=== PATIENT | male | born 1935 | race Caucasian/White ===

== ENCOUNTER 2017-07-26 17:18 | Emergency (ER) | payer MEDICARE, OTHER ==
[~2017-07-26] VITALS: Ht 182.9 cm; Wt 74.8 kg
[~2017-07-26 17:18] MED LIST: ACYC400 PO; ACYC800 PO; ASPI81EC PO; AZIT250; CHOL10002; ENOX30I SC; GUAI120S1; HYDACE5 PO; HYDHOMSY PO; METF500 PO; METHIMAZOLE PO; METO50 PO; Monodox100 MG PO; OMEP20ER PO; PRED1 PO; PRED10 PO; SIMV40 PO; WARF1; WARF5 PO; WARF7.5 PO; ZOLP10 PO
[2017-07-26 18:04] LABS: BASOPHILS ABSOLUTE AUTO 0.07 K/mm3 (0.00-0.23); BASOPHILS PERCENT AUTO 1 % (0-2); EOSINOPHILS ABSOLUTE AUTO 0.09 K/mm3 (0.00-0.68); EOSINOPHILS PERCENT AUTO 1 % (0-6); Hemoglobin 8.9 g/dL (13.5-17.5); IMMATURE GRAN ABSOLUTE AUTO 0.02 K/mm3 (0.00-0.10); IMMATURE GRAN PERCENT AUTO 0 % (0-1); LYMPHOCYTES ABSOLUTE AUTO 1.67 K/mm3 (0.84-5.20); LYMPHOCYTES PERCENT AUTO 21 % (21-46); MONOCYTES ABSOLUTE AUTO 0.67 K/mm3 (0.16-1.47); MONOCYTES PERCENT AUTO 9 % (4-13); Mean Corpuscular HGB 20.6 pg (26.0-34.0); Mean Corpuscular HGB Conc 28.7 g/dL (31.5-36.5); Mean Corpuscular Volume 72 fL (80-100); Mean Platelet Volume 8.8 fL (9.1-12.4); NEUTROPHILS PERCENT AUTO 68 % (41-73); Platelet Count 201 K/mm3 (150-400); RDW Coefficient Variation 21.3 % (11.7-14.2); RDW Standard Deviation 54.2 fL (35.1-46.3); Red Blood Cell Count 4.32 M/mm3 (4.30-5.90); White Blood Cell Count 7.82 K/mm3 (4.00-11.30)
[2017-07-26 18:20] LABS: Alanine Aminotransfer (ALT/SGP 23 U/L (12-78); Albumin, Blood 3.4 g/dL (3.4-5.0); Albumin/Globulin Ratio 0.8 (0.8-1.8); Alk Phos 85 U/L (50-136); Anion Gap 9 mmol/L (6-16); Aspartate Aminotrans (AST/SGOT 20 U/L (12-37); Bilirubin, Total 0.5 mg/dL (0.1-1.0); Blood Urea Nitrogen 17 mg/dL (8-24); CO2, Blood 25 mmol/L (21-32); Chloride, Blood 107 mmol/L (98-108); Globulin, Blood 4.2 g/dL (2.2-4.0); Glomerular Filtration Rate >60 (60-); Glucose, Blood 89 mg/dL (70-99); Magnesium, Blood 1.8 mg/dL (1.6-2.4); Potassium, Blood 4.5 mmol/L (3.5-5.5); Sodium, Blood 141 mmol/L (136-145); Total Protein, Blood 7.6 g/dL (6.4-8.2); Troponin I <0.015 ng/mL (0.000-0.040)
== END 2017-07-26 19:53 | disposition home or self-care (01) ==
LOC: ER 17:18
PROVIDERS: Emergency Medicine
DX: I48.91 Unspecified atrial fibrillation (principal); D64.9 Anemia, unspecified; I10 Essential (primary) hypertension; I25.10 Atherosclerotic heart disease of native coronary artery without angina pectoris; Z88.5 Allergy status to narcotic agent; Z88.8 Allergy status to other drugs, medicaments and biological substances; Z79.899 Other long term (current) drug therapy; Z79.84 Long term (current) use of oral hypoglycemic drugs
CPT/HCPCS: 36415; 71046; 80053; 82272; 83735; 84443; 84484; 85025; 93005; 93010; 99284

== ENCOUNTER 2018-05-05 16:47 | Observation (INO) | payer MEDICARE, OTHER ==
[~2018-05-05] VITALS: Ht 182.9 cm; Wt 72.6 kg
[~2018-05-05 16:47] MED LIST changes: +ATOR20 PO; -CHOL10002; +CHOL10002 PO; +Lovenox30 MG/0.3 INJ; -METF500 PO; +METF500C PO; +METO25 PO; -METO50 PO; +Miralax17 GM PO; +OMEPRAZOLE MAGN20 MG PO
[2018-05-05 17:07] LABS: BASOPHILS ABSOLUTE AUTO 0.09 K/mm3 (0.00-0.23); BASOPHILS PERCENT AUTO 1 % (0-2); EOSINOPHILS ABSOLUTE AUTO 0.12 K/mm3 (0.00-0.68); EOSINOPHILS PERCENT AUTO 1 % (0-6); Hemoglobin 10.2 g/dL (13.5-17.5); IMMATURE GRAN ABSOLUTE AUTO 0.14 K/mm3 (0.00-0.10); IMMATURE GRAN PERCENT AUTO 2 % (0-1); LYMPHOCYTES ABSOLUTE AUTO 2.82 K/mm3 (0.84-5.20); LYMPHOCYTES PERCENT AUTO 31 % (21-46); MONOCYTES ABSOLUTE AUTO 0.75 K/mm3 (0.16-1.47); MONOCYTES PERCENT AUTO 8 % (4-13); Mean Corpuscular HGB 23.6 pg (26.0-34.0); Mean Corpuscular HGB Conc 29.1 g/dL (31.5-36.5); Mean Corpuscular Volume 81 fL (80-100); Mean Platelet Volume 8.8 fL (9.1-12.4); NEUTROPHILS ABSOLUTE AUTO 5.17 K/mm3 (1.96-9.15); NEUTROPHILS PERCENT AUTO 57 % (41-73); Platelet Count 245 K/mm3 (150-400); RDW Coefficient Variation 20.8 % (11.7-14.2); RDW Standard Deviation 60.8 fL (35.1-46.3); Red Blood Cell Count 4.32 M/mm3 (4.30-5.90); White Blood Cell Count 9.09 K/mm3 (4.00-11.30)
[2018-05-05 17:22] LABS: International Normalized Ratio 1.09; Prothrombin Time Results 11.2 Sec (9.7-11.5)
[2018-05-05 17:27] LABS: Alanine Aminotransfer (ALT/SGP 27 U/L (12-78); Albumin, Blood 3.4 g/dL (3.4-5.0); Albumin/Globulin Ratio 0.8 (0.8-1.8); Alk Phos 86 U/L (50-136); Anion Gap 9 mmol/L (6-16); Aspartate Aminotrans (AST/SGOT 25 U/L (12-37); Bilirubin, Total 0.7 mg/dL (0.1-1.0); Blood Urea Nitrogen 9 mg/dL (8-24); Bun/Creatinine Ratio 8.3 (12.0-20.0); CO2, Blood 24 mmol/L (21-32); Calcium, Blood 8.9 mg/dL (8.5-10.1); Chloride, Blood 106 mmol/L (98-108); Creatinine, Blood 1.09 mg/dL (0.60-1.20); Ethanol (Alcohol), Blood, Med 161 mg/dL; Globulin, Blood 4.4 g/dL (2.2-4.0); Glomerular Filtration Rate >60 (60-); Glucose, Blood 92 mg/dL (70-99); Potassium, Blood 3.8 mmol/L (3.5-5.5); Sodium, Blood 139 mmol/L (136-145); Total Protein, Blood 7.8 g/dL (6.4-8.2)
[2018-05-05] MEDS ORDERED: WARF5 PO (19:43)
--- NOTE | 2018-05-06 04:34 | NUR ---
SHIFT SUMMARY: PT IS ALERT AND ORIENTED WITH SOME MINOR CONFUSION AND FORGETFULLNESS. PT IS CALM AND COOPERATIVE WITH CARE. PT CALLS APPROPRIATELY. PT IS NORMALY INDEPENDENT, CURRENTLY TOO WEAK AND PAINFUL TO AMBULATE. PT REPORTS MUSCULOSKELETAL PAIN IN HIS L. CHEST, CALLED DR. MARIN AND RECEIVED AN ORDER FOR PRN PERCOCET, ALLERGY LISTED FOR ACETAMINOPHEN FROM HYDROCODONE, NO ALLERGIC REACTION. PT DENIES NAUSEA, VOMITING, AND SOB. PT SLEPT VERY LITTLE OVERNIGHT. WILL REPORT TO DAY NURSE.
--- NOTE | 2018-05-06 15:16 | NUR ---
obtained permission from pt to provide care under RN supervision 05/07/18 from [id number]. Pt granted access to medical files as well.
--- NOTE | 2018-05-06 15:47 | NUR ---
PT IS A/OX3, PLEASANT AND COOPERATIVE, THE PT IS UP WITH 1 PERSON ASSIST, THE PT CAN BE UNSTEADY ON HIS FEET AT TIMES, THE PT APPEARS TO BE BREATHING EASILY ON RA, THE PT REPORTED CHEST PAIN TODAY LIKELY RELATED TO HIS FALL. THE PT REFUSED TO WORK OUTSIDE OF THE BED WITH THE PHYSICAL THERAPIST TODAY BECAUSE OF HIS PAIN, THE PTS DISCHARGE WAS HELD BY DR. CAVAZOS PENDING FURTHER REVIEW, PT HAS A CONTUSION ON THE BACK OF HIS HEAD FROM HIS FALL YESTERDAY, PT WAS MEDICATED FOR PAIN X1 SO FAR TODAY, BED IN THE LOW POSITION, CALL LIGHT IN REACH
--- NOTE | 2018-05-07 04:04 | NUR ---
SHIFT SUMMARY: PT IS ALERT AND ORIENTED WITH MINOR, INTERMITTENT CONFUSION. PT IS CALM AND COOPERATIVE WITH CARE. PT CALLS APPROPRIATELY. PT IS A ONE PERSON ASSIST WITH FWW TO THE BATHROOM. PT REPORTS PAIN, ESPECIALLY WITH MOVEMENT, NO MEDS GIVEN. PT DENIES NAUSEA, VOMITING, AND SOB. POSSIBLE DC TODAY. NO ACUTE CHANGES OR COMPLICATIONS. BED IN LOW POSITION, CALL LIGHT WITHIN REACH.
[2018-05-07 06:39] LABS: International Normalized Ratio 1.1; Prothrombin Time Results 11.3 Sec (9.7-11.5)
--- NOTE | 2018-05-07 18:26 | NUR ---
MILD CONFUSION/FORGETFULNESS NOTED FIRST THIS THIS MORNING, CLEARED PT WAS UP AND ABOUT TODAY. MEDICATED FOR NECK AND R SHOULDER PAIN THIS AFTERNOON, NO ACUTE CHANGES NOTED THIS SHIFT. WILL CONTINUE TO MONITOR AND REPORT TO ONCOMING RN.
[2018-05-08 05:53] LABS: International Normalized Ratio 1.11; Prothrombin Time Results 11.4 Sec (9.7-11.5)
--- NOTE | 2018-05-08 05:57 | NUR ---
INVESTIGATIVE ANALYST SUMMARY NO ACUTE CHANGES. PT AAOX4. A LITTLE IRRITABLE WITH CARE AT START OF SHIFT BUT OVERALL COOPERATIVE WITH CARE. PT DENIES DIZZINESS. TREATED FOR CHRONIC BACK PAIN X1 PER EMAR. GEOLOGICAL SCIENCE TEACHER REPORTS CONTROLLED AFIB IN 60-70'S THROUGH THE NIGHT. VSS, WILL CONTINUE TO MONITOR.
[2018-05-08] MEDS ORDERED: ENOX80I SC (14:49)
== END 2018-05-08 15:03 | disposition home health service (06) ==
LOC: ER 16:47 → MEDS 16:48 → ENPENDDIS 05-08 14:00 → MEDS 05-08 15:03
PROVIDERS: Internal Medicine; Physician Assistant; ADMIT Internal Medicine
DX: R55 Syncope and collapse (principal); R07.9 Chest pain, unspecified; I48.2 Chronic atrial fibrillation; E11.9 Type 2 diabetes mellitus without complications; I25.10 Atherosclerotic heart disease of native coronary artery without angina pectoris; I10 Essential (primary) hypertension; E78.00 Pure hypercholesterolemia, unspecified; H05.20 Unspecified exophthalmos; R93.89 Abnormal findings on diagnostic imaging of other specified body structures; Z88.5 Allergy status to narcotic agent; Z88.8 Allergy status to other drugs, medicaments and biological substances; Z79.01 Long term (current) use of anticoagulants; Z79.899 Other long term (current) drug therapy; Z95.2 Presence of prosthetic heart valve; Z87.891 Personal history of nicotine dependence; Z23 Encounter for immunization
CPT/HCPCS: 36415; 70450; 71046; 72125; 80053; 82947; 83036; 83690; 84439; 84443; 84484; 85025; 85610; 85730; 90686; 93005; 93010; 93306; 96372; 97110; 97162; 99285-25; G0008; G0378; G0480; J1650

== ENCOUNTER 2019-12-23 08:22 | Emergency (ER) | payer MEDICARE, OTHER ==
[~2019-12-23] VITALS: Ht 182.9 cm; Wt 67.1 kg
[~2019-12-23 08:22] MED LIST changes: -ATOR20 PO; +ENOX80I SC; -METF500C PO
[2019-12-23 09:08] LABS: BASOPHILS ABSOLUTE AUTO 0.04 K/mm3 (0.00-0.23); BASOPHILS PERCENT AUTO 0 % (0-2); EOSINOPHILS ABSOLUTE AUTO 0.01 K/mm3 (0.00-0.68); EOSINOPHILS PERCENT AUTO 0 % (0-6); Hematocrit 41.8 % (37.0-53.0); Hemoglobin 13.6 g/dL (13.5-17.5); IMMATURE GRAN ABSOLUTE AUTO 0.04 K/mm3 (0.00-0.10); IMMATURE GRAN PERCENT AUTO 0 % (0-1); LYMPHOCYTES ABSOLUTE AUTO 0.93 K/mm3 (0.84-5.20); LYMPHOCYTES PERCENT AUTO 9 % (21-46); MONOCYTES ABSOLUTE AUTO 0.67 K/mm3 (0.16-1.47); MONOCYTES PERCENT AUTO 7 % (4-13); Mean Corpuscular HGB 27.2 pg (26.0-34.0); Mean Corpuscular HGB Conc 32.5 g/dL (31.5-36.5); Mean Corpuscular Volume 84 fL (80-100); Mean Platelet Volume 9.6 fL (9.1-12.4); NEUTROPHILS ABSOLUTE AUTO 8.48 K/mm3 (1.96-9.15); NEUTROPHILS PERCENT AUTO 83 % (41-73); Platelet Count 240 K/mm3 (150-400); RDW Coefficient Variation 15.9 % (11.7-14.2); White Blood Cell Count 10.17 K/mm3 (4.00-11.30)
[2019-12-23 09:24] LABS: International Normalized Ratio 1.15; Prothrombin Time Results 12.2 Sec (9.7-11.5)
[2019-12-23 09:35] LABS: Alanine Aminotransfer (ALT/SGP 19 U/L (12-78); Albumin, Blood 3.6 g/dL (3.4-5.0); Albumin/Globulin Ratio 0.8 (0.8-1.8); Alk Phos 71 U/L (50-136); Anion Gap 12 mmol/L (6-16); Aspartate Aminotrans (AST/SGOT 32 U/L (12-37); Bilirubin, Total 1.6 mg/dL (0.1-1.0); Blood Urea Nitrogen 27 mg/dL (8-24); Bun/Creatinine Ratio 27.4 (12.0-20.0); CO2, Blood 20 mmol/L (21-32); CPK Creatine Kinase 337 U/L (39-308); Calcium, Blood 9.9 mg/dL (8.5-10.1); Chloride, Blood 105 mmol/L (98-108); Creatinine, Blood 0.99 mg/dL (0.60-1.20); Ethanol (Alcohol), Blood, Med <3 mg/dL; Globulin, Blood 4.7 g/dL (2.2-4.0); Glomerular Filtration Rate >60 (60-); Glucose, Blood 105 mg/dL (70-99); Magnesium, Blood 2.1 mg/dL (1.6-2.4); Phosphorus, Blood 3.3 mg/dL (2.5-4.9); Potassium, Blood 4.2 mmol/L (3.5-5.5); Sodium, Blood 137 mmol/L (136-145); Total Protein, Blood 8.3 g/dL (6.4-8.2); Troponin I 0.015 ng/mL (0.000-0.040)
[2019-12-23 09:49] LABS: Creatine Kinase MB Index 1.8 (0.0-4.0)
[2019-12-23 10:11] LABS: Source, Urine Clean Catch
[2019-12-23 10:13] LABS: Blood, Urine 2+ (Neg); Glucose Qualitative, Urine Neg (Neg); Ketones, Urine 3+ (Neg); Leukocyte Esterase, Urine Neg (Neg); Nitrite, Urine Neg (Neg); Protein, Urine 2+ (Neg); Specific Gravity, Urine 1.025 (1.003-1.022); Urobilinogen, Urine 1+ (Normal)
[2019-12-23 10:28] LABS: Bilirubin, Urine 1+ (Neg)
[2019-12-23 10:31] LABS: Appearance, Urine Clear (Clear); Bacteria Rare /hpf; Color, Urine Yellow (P-Yellow); Squamous Epithelial Cells Rare /hpf (Few); White Blood Cells, Urine 0-2 /hpf (0-5)
[2019-12-23] MEDS ORDERED: WARF5 PO (12:41)
[2019-12-23] MEDS ORDERED: ATOR20 PO (12:41)
[2019-12-23] MEDS ORDERED: METF500 PO (12:41)
== END 2019-12-23 16:05 ==
LOC: ER 08:22
PROVIDERS: Physician Assistant
DX: E86.0 Dehydration (principal); I48.91 Unspecified atrial fibrillation; I10 Essential (primary) hypertension; I25.810 Atherosclerosis of coronary artery bypass graft(s) without angina pectoris; E78.00 Pure hypercholesterolemia, unspecified; E11.39 Type 2 diabetes mellitus with other diabetic ophthalmic complication; H42 Glaucoma in diseases classified elsewhere; Z20.828 Contact with and (suspected) exposure to other viral communicable diseases; Z88.6 Allergy status to analgesic agent; Z88.5 Allergy status to narcotic agent; Z79.84 Long term (current) use of oral hypoglycemic drugs; Z79.899 Other long term (current) drug therapy; Z79.01 Long term (current) use of anticoagulants; Z95.1 Presence of aortocoronary bypass graft; Z95.5 Presence of coronary angioplasty implant and graft; Z87.891 Personal history of nicotine dependence
CPT/HCPCS: 36415; 70450; 80053; 81001; 82550; 82553; 83735; 84100; 84484; 85025; 85610; 93005; 93010; 97110; 97162; 99285-25; G0480; J7030; U0002

== ENCOUNTER 2019-12-25 03:16 | Inpatient (IN) | payer MEDICARE, OTHER ==
[~2019-12-25] VITALS: Ht 182.9 cm; Wt 64.2 kg
[~2019-12-25 03:16] MED LIST changes: +ATOR20 PO; +METF500 PO
[2019-12-25] MEDS ORDERED: METO25ER PO (04:01)
[2019-12-25 04:09] LABS: BASOPHILS ABSOLUTE AUTO 0.05 K/mm3 (0.00-0.23); BASOPHILS PERCENT AUTO 0 % (0-2); EOSINOPHILS PERCENT AUTO 0 % (0-6); Hemoglobin 12.4 g/dL (13.5-17.5); IMMATURE GRAN ABSOLUTE AUTO 0.08 K/mm3 (0.00-0.10); IMMATURE GRAN PERCENT AUTO 1 % (0-1); LYMPHOCYTES PERCENT AUTO 5 % (21-46); MONOCYTES ABSOLUTE AUTO 0.87 K/mm3 (0.16-1.47); MONOCYTES PERCENT AUTO 6 % (4-13); Mean Corpuscular HGB 27.1 pg (26.0-34.0); Mean Corpuscular HGB Conc 31.8 g/dL (31.5-36.5); Mean Corpuscular Volume 85 fL (80-100); Mean Platelet Volume 10.6 fL (9.1-12.4); NEUTROPHILS ABSOLUTE AUTO 12.26 K/mm3 (1.96-9.15); NEUTROPHILS PERCENT AUTO 88 % (41-73); Platelet Count 194 K/mm3 (150-400); RDW Coefficient Variation 16.7 % (11.7-14.2); Red Blood Cell Count 4.58 M/mm3 (4.30-5.90); White Blood Cell Count 13.96 K/mm3 (4.00-11.30)
[2019-12-25 04:17] LABS: PCO2 Arterial 31.1 mmHg (35-45); PO2 Arterial 63.9 mmHg (80-100); pH Blood Arterial 7.47 (7.35-7.45)
[2019-12-25 04:30] LABS: Alanine Aminotransfer (ALT/SGP 18 U/L (12-78); Albumin/Globulin Ratio 0.6 (0.8-1.8); Alk Phos 63 U/L (50-136); Anion Gap 6 mmol/L (6-16); Aspartate Aminotrans (AST/SGOT 40 U/L (12-37); Bilirubin, Total 1.7 mg/dL (0.1-1.0); Blood Urea Nitrogen 22 mg/dL (8-24); Bun/Creatinine Ratio 22.1 (12.0-20.0); CO2, Blood 23 mmol/L (21-32); Calcium, Blood 9.6 mg/dL (8.5-10.1); Chloride, Blood 106 mmol/L (98-108); Globulin, Blood 4.7 g/dL (2.2-4.0); Glomerular Filtration Rate >60 (60-); Glucose, Blood 110 mg/dL (70-99); Potassium, Blood 5.6 mmol/L (3.5-5.5); Sodium, Blood 135 mmol/L (136-145); Total Protein, Blood 7.7 g/dL (6.4-8.2); Troponin I 0.026 ng/mL (0.000-0.040)
[2019-12-25 05:16] LABS: International Normalized Ratio 1.21; Prothrombin Time Results 12.8 Sec (9.7-11.5)
[2019-12-25 07:13] LABS: BASOPHILS ABSOLUTE AUTO 0.05 K/mm3 (0.00-0.23); BASOPHILS PERCENT AUTO 0 % (0-2); EOSINOPHILS PERCENT AUTO 0 % (0-6); Hematocrit 33.8 % (37.0-53.0); Hemoglobin 10.9 g/dL (13.5-17.5); IMMATURE GRAN ABSOLUTE AUTO 0.05 K/mm3 (0.00-0.10); IMMATURE GRAN PERCENT AUTO 0 % (0-1); LYMPHOCYTES PERCENT AUTO 5 % (21-46); MONOCYTES ABSOLUTE AUTO 0.86 K/mm3 (0.16-1.47); MONOCYTES PERCENT AUTO 7 % (4-13); Mean Corpuscular HGB 27.3 pg (26.0-34.0); Mean Corpuscular HGB Conc 32.2 g/dL (31.5-36.5); Mean Corpuscular Volume 85 fL (80-100); Mean Platelet Volume 9.6 fL (9.1-12.4); NEUTROPHILS ABSOLUTE AUTO 10.29 K/mm3 (1.96-9.15); NEUTROPHILS PERCENT AUTO 87 % (41-73); Platelet Count 186 K/mm3 (150-400); RDW Coefficient Variation 16.3 % (11.7-14.2); RDW Standard Deviation 49.5 fL (35.1-46.3); Red Blood Cell Count 3.99 M/mm3 (4.30-5.90); White Blood Cell Count 11.85 K/mm3 (4.00-11.30)
[2019-12-25 07:33] LABS: Alanine Aminotransfer (ALT/SGP 14 U/L (12-78); Albumin, Blood 2.6 g/dL (3.4-5.0); Albumin/Globulin Ratio 0.6 (0.8-1.8); Alk Phos 56 U/L (50-136); Anion Gap 7 mmol/L (6-16); Aspartate Aminotrans (AST/SGOT 13 U/L (12-37); Bilirubin, Total 1.4 mg/dL (0.1-1.0); Blood Urea Nitrogen 22 mg/dL (8-24); Bun/Creatinine Ratio 23.2 (12.0-20.0); CO2, Blood 23 mmol/L (21-32); Calcium, Blood 8.8 mg/dL (8.5-10.1); Chloride, Blood 107 mmol/L (98-108); Creatinine, Blood 0.95 mg/dL (0.60-1.20); Glomerular Filtration Rate >60 (60-); Glucose, Blood 112 mg/dL (70-99); Potassium, Blood 4.1 mmol/L (3.5-5.5); Sodium, Blood 137 mmol/L (136-145); Total Protein, Blood 6.6 g/dL (6.4-8.2)
[2019-12-25 13:09] LABS: Adenovirus Not Detected (NOT DETECT); Coronavirus 229E Not Detected (NOT DETECT)
[2019-12-25 13:10] LABS: Bordetella pertussis Not Detected (NOT DETECT); Chlamydophila pneumoniae Not Detected (NOT DETECT); Coronavirus HKU1 Not Detected (NOT DETECT); Coronavirus NL63 Not Detected (NOT DETECT); Coronavirus OC43 Not Detected (NOT DETECT); Human Metapneumovirus Not Detected (NOT DETECT); Human Rhinovirus/Enterovirus Not Detected (NOT DETECT); Influenza A/2009-H1 Not Detected (NOT DETECT); Influenza A/H1 Not Detected (NOT DETECT); Influenza A/H3 Not Detected (NOT DETECT); Influenza B Not Detected (NOT DETECT); Mycoplasma pneumoniae Not Detected (NOT DETECT); Parainfluenza Virus 1 Not Detected (NOT DETECT); Parainfluenza Virus 2 Not Detected (NOT DETECT); Parainfluenza Virus 3 Not Detected (NOT DETECT); Parainfluenza Virus 4 Not Detected (NOT DETECT); Respiratory Syncytial Virus Not Detected (NOT DETECT); SARS-Cov-2 (COVID-19), BioFire Not Detected (NOT DETECT)
--- NOTE | 2019-12-25 19:22 | NUR ---
SHIFT SUMMARY PT WAS ADMITTED TODAY FROM ER. PT IS ALERT AND ORIENTED TO PERSON, PLACE, KNOWS IT 2020, WAS CONFUSED ABOUT THE MONTH. PT REPORTS TO RN THAT HE WAS "KIDNAPPED" AND ALL HIS PROBLEMS BEGAN WHEN THAT HAPPEN. PT WAS UNABLE TO ELABORATE MORE ABOUT A TIMELINE OF EVENTS. PT WAS NOTED TO HAVE BRUISING TO RIGHT SIDE AND SCATTERED THROUGH OUT BODY. LUNG SOUNDS ARE COARSE T/O AND PT IS ON 2L OF O2. VITALS HAVE REMAINED STABLE. SPEECH THERAPY SAW PT AND RECOMMENDS NPO. INFORMED DR AND ORDERS WERE CHANGED TO IV MEDS.
--- NOTE | 2019-12-26 02:36 | NUR ---
UPDATE PATIENT REPORTED 5/10 CHEST PAIN THAT OCCURED WHEN HE MOVED OR COUGHED. NO CHANGES NOTED TO TELE PER ATM MECHANIC. DR NOTIFIED. ORDER FOR PAIN MEDICATION RECEIVED.
[2019-12-26 04:10] LABS: BASOPHILS ABSOLUTE AUTO 0.05 K/mm3 (0.00-0.23); BASOPHILS PERCENT AUTO 1 % (0-2); EOSINOPHILS ABSOLUTE AUTO 0.03 K/mm3 (0.00-0.68); EOSINOPHILS PERCENT AUTO 0 % (0-6); Hemoglobin 10.6 g/dL (13.5-17.5); IMMATURE GRAN ABSOLUTE AUTO 0.05 K/mm3 (0.00-0.10); IMMATURE GRAN PERCENT AUTO 1 % (0-1); LYMPHOCYTES ABSOLUTE AUTO 0.69 K/mm3 (0.84-5.20); LYMPHOCYTES PERCENT AUTO 7 % (21-46); MONOCYTES PERCENT AUTO 6 % (4-13); Mean Corpuscular HGB 27.5 pg (26.0-34.0); Mean Corpuscular HGB Conc 32.1 g/dL (31.5-36.5); Mean Corpuscular Volume 86 fL (80-100); Mean Platelet Volume 10.1 fL (9.1-12.4); NEUTROPHILS ABSOLUTE AUTO 8.69 K/mm3 (1.96-9.15); NEUTROPHILS PERCENT AUTO 86 % (41-73); Platelet Count 190 K/mm3 (150-400); RDW Coefficient Variation 16.4 % (11.7-14.2); RDW Standard Deviation 50.2 fL (35.1-46.3); Red Blood Cell Count 3.85 M/mm3 (4.30-5.90); White Blood Cell Count 10.11 K/mm3 (4.00-11.30)
[2019-12-26 04:23] LABS: Albumin, Blood 2.5 g/dL (3.4-5.0); Anion Gap 6 mmol/L (6-16); Blood Urea Nitrogen 19 mg/dL (8-24); Bun/Creatinine Ratio 21.6 (12.0-20.0); CO2, Blood 24 mmol/L (21-32); Calcium, Blood 8.7 mg/dL (8.5-10.1); Chloride, Blood 111 mmol/L (98-108); Creatinine, Blood 0.88 mg/dL (0.60-1.20); Glomerular Filtration Rate >60 (60-); Glucose, Blood 82 mg/dL (70-99); Phosphorus, Blood 2.5 mg/dL (2.5-4.9); Potassium, Blood 3.9 mmol/L (3.5-5.5); Sodium, Blood 141 mmol/L (136-145)
--- NOTE | 2019-12-26 07:33 | NUR ---
SHIFT SUMMARY PATIENT PLEASENT AND COOPERATIVE THROUGHOUT THE NIGHT. HOWEVER, PATIENT APPEARS TO BE CONFUSED AND FORGETFUL LAST NIGHT. PATIENT REQUESTED HIS PHONE TO BE TURNED OFF AND THEN SHORTLY AFTER HE WAS TRYING TO FIGURE OUT WHY HIS PHONE WAS NOT "WORKING." PATIENT TURNED Q2H. PATIENT MEDICATED FOR PAIN PER EMAR. IV FLUIDS FINISHED PER ORDERS. BED ALARM ON FOR SAFETY. REPORT GIVEN TO ONCOMING RN.
--- NOTE | 2019-12-26 17:49 | NUR ---
SHIFT SUMMARY PT IS ALERT TO PERSON AND PLACE, FORGETFUL AT TIMES. PT WAS WEANED TO ROOM AIR TODAY AND HAS MAINTAINED A SPO2 >92%. LUNGS REMAIN COURSE THROUGHOUT AND PT STILL HAS A MOIST NONPRODUCTIVE COUGH. SPEECH SAW PT AGAIN TODAY, BUT WAS UNABLE TO CHANGE NPO STATUS. PLAN IS POSSIBLE MODIFIED BARIUM STUDY TOMORROW. PHYSICAL THERAPY AND OCCUPATIONAL THERAPY WORKED WITH PT AND PT TOLERATED SITTING UP IN CHAIR FOR A FEW HOURS TODAY. PT DOES NEED REMINDING/ASSITANCE IN REPOSITIONING TO DECREASE RISK OF SKIN BREAKDOWN. TELEMETRY HAS SHOWN PT TO BE IN A-FIB, RATE CONTROLLED. VITALS HAVE BEEN STABLE. THIS MORNING PT'S STATUS WAS CHANGED TO MEDICAL WITH TELE.
--- NOTE | 2019-12-26 22:09 | NUR ---
TRANSFER NOTE PT A&O TO SELF, PLACE, EVENT, & FOLLOWING INSTRUCTIONS. PT DISORIENTED TO DATE/TIME. VSS. MONITOR SHOWS AFIB, HR 70's-80's. SPO2 > 92% ON RA. PT W/ MOIST COUGH W/ PT MIXED REPORT OF PRODUCING SPUTUM OR NOT. PT APPEARS TO POSSIBLY BE SWALLOWING SPUTUM AFTER COUGHING. PT NPO, AWAITING CLEARANCE FROM ST. PT MEDICAL W/ TELE STATUS. REPORT CALLED TO ACCEPTING MEDICAL FLOOR RN. PT BEING TRANSFERRED TO MEDICAL FLOOR RM [id number] BY BED @ APPROX 2230.
--- NOTE | 2019-12-26 22:43 | NUR ---
PT ARRIVED TO UNIT FROM PCU. INTRODUCED TO ROOM AND STAFF. NO SOB NOTED. LUNG SOUNDS COARSE THROUGHOUT. NO EDEMA PRESENT. DENIES PAIN, NAUSEA. CURRENTLY RESTING. BED ALARM ON. HR A. FIB AT 76 PER PHOTOGRAPHER FINISH. CAMERA MONITOR ALSO IN PLACE.
[2019-12-27 05:48] LABS: BASOPHILS ABSOLUTE AUTO 0.04 K/mm3 (0.00-0.23); BASOPHILS PERCENT AUTO 1 % (0-2); EOSINOPHILS ABSOLUTE AUTO 0.14 K/mm3 (0.00-0.68); EOSINOPHILS PERCENT AUTO 2 % (0-6); Hematocrit 31.8 % (37.0-53.0); Hemoglobin 9.9 g/dL (13.5-17.5); IMMATURE GRAN ABSOLUTE AUTO 0.02 K/mm3 (0.00-0.10); IMMATURE GRAN PERCENT AUTO 0 % (0-1); LYMPHOCYTES ABSOLUTE AUTO 0.99 K/mm3 (0.84-5.20); LYMPHOCYTES PERCENT AUTO 15 % (21-46); MONOCYTES ABSOLUTE AUTO 0.53 K/mm3 (0.16-1.47); MONOCYTES PERCENT AUTO 8 % (4-13); Mean Corpuscular HGB 26.9 pg (26.0-34.0); Mean Corpuscular HGB Conc 31.1 g/dL (31.5-36.5); Mean Corpuscular Volume 86 fL (80-100); NEUTROPHILS ABSOLUTE AUTO 4.76 K/mm3 (1.96-9.15); NEUTROPHILS PERCENT AUTO 73 % (41-73); Platelet Count 213 K/mm3 (150-400); RDW Coefficient Variation 16.6 % (11.7-14.2); RDW Standard Deviation 51.4 fL (35.1-46.3); Red Blood Cell Count 3.68 M/mm3 (4.30-5.90); White Blood Cell Count 6.48 K/mm3 (4.00-11.30)
[2019-12-27 06:12] LABS: Alanine Aminotransfer (ALT/SGP 13 U/L (12-78); Albumin, Blood 2.3 g/dL (3.4-5.0); Albumin/Globulin Ratio 0.5 (0.8-1.8); Alk Phos 57 U/L (50-136); Anion Gap 7 mmol/L (6-16); Aspartate Aminotrans (AST/SGOT 13 U/L (12-37); Bilirubin, Total 1.2 mg/dL (0.1-1.0); Blood Urea Nitrogen 21 mg/dL (8-24); Bun/Creatinine Ratio 23.6 (12.0-20.0); CO2, Blood 22 mmol/L (21-32); Chloride, Blood 111 mmol/L (98-108); Creatinine, Blood 0.89 mg/dL (0.60-1.20); Globulin, Blood 4.2 g/dL (2.2-4.0); Glomerular Filtration Rate >60 (60-); Glucose, Blood 93 mg/dL (70-99); Potassium, Blood 3.3 mmol/L (3.5-5.5); Sodium, Blood 140 mmol/L (136-145); Total Protein, Blood 6.5 g/dL (6.4-8.2)
--- NOTE | 2019-12-27 07:19 | NUR ---
HARVEST CREW SUPERVISOR SUMMARY PT A/O X3 WITH OCCASIONAL FORTGETFULNESS. SLEPT WELL TONIGHT. REPOSITIONED A FEW TIMES TONIGHT. DENIES PAIN, NAUSEA. PT ON RM AIR SATTING IN THE HIGH 90'S. DOES GET SOME SOB WITH REPOSITIONG. PT VITALS TAKEN THIS AM AFTER REPOSITIONING, THEREFORE THE ELEVATED RESPIRATIONS. BED ALARM ON. CAMERA MONITOR ON. BED IN LOWEST POSITION, CALL LIGHT WITHIN REACH. REPORT GIVEN TO AM NURSE.
--- NOTE | 2019-12-27 15:28 | NUR ---
pt in enhance contact isolation. He has polst on chart from [facility] that is not signed by physician. Advise dnursing will follow up he chose full code.
--- NOTE | 2019-12-27 16:38 | NUR ---
SHIFT SUMMARY PATIENT IS PLEASANT, ALERT AND ORIENTED TO SELF AND PLACE. HE IS CURRENTLY AWAITING COVID RESULTS. HE IS PLEASANT, HE DOES NOT HAVE ANY CURRENT CONCERNS BESIDES GETTING HIMSELF OUT OF THE HOSPITAL. HE HAS CLINIMIX RUNNING, WELL POTASSIUM REPLACEMENT.
--- NOTE | 2019-12-28 04:58 | NUR ---
SHIFT SUMMARY PT IS AN 84 Y/O MALE, ADMITTED FOR ACUTE RESPIRATORY FAILURE WITH HYPOXIA. HE IS A&O X 2, PLEASANT AND COOPERATIVE WITH CARE, ABLE TO VERBALIZE NEEDS. PT IS ABLE TO ABULATE 1-2PA C A FWW, BUT DID NOT GET OUT OF BED DURING THE NIGHT. PT IS ON TELE, SHOWING AFIB IN THE 60-70S. ALL OTHER VITALS STABLE. PT REMAINING > 91% O2 ON RA. HE IS CURRENTLY STRICT NPO DUE TO FAILING A SWALLOW EVAL. RECEIVING CLINIMIX @ 100 ML/HR. PT REPORTED A MILD MULLIGAN DURING THE NIGHT, BUT REFUSED THE TYLENOL SUPPOSITORY OR ANY ICE/HEAT PACKS. NO OTHER ACUTE CHANGES IN PT CONDITION NOTED. WILL CONTINUE TO MONITOR AND TREAT PER EMAR UNTIL HAND OFF TO DAY SHIFT RN.
[2019-12-28 06:02] LABS: BASOPHILS ABSOLUTE AUTO 0.03 K/mm3 (0.00-0.23); BASOPHILS PERCENT AUTO 1 % (0-2); EOSINOPHILS ABSOLUTE AUTO 0.14 K/mm3 (0.00-0.68); EOSINOPHILS PERCENT AUTO 2 % (0-6); Hematocrit 31.5 % (37.0-53.0); Hemoglobin 10.3 g/dL (13.5-17.5); IMMATURE GRAN ABSOLUTE AUTO 0.02 K/mm3 (0.00-0.10); IMMATURE GRAN PERCENT AUTO 0 % (0-1); LYMPHOCYTES ABSOLUTE AUTO 0.86 K/mm3 (0.84-5.20); LYMPHOCYTES PERCENT AUTO 14 % (21-46); MONOCYTES PERCENT AUTO 7 % (4-13); Mean Corpuscular HGB 27.5 pg (26.0-34.0); Mean Corpuscular HGB Conc 32.7 g/dL (31.5-36.5); Mean Corpuscular Volume 84 fL (80-100); Mean Platelet Volume 9.6 fL (9.1-12.4); NEUTROPHILS ABSOLUTE AUTO 4.67 K/mm3 (1.96-9.15); NEUTROPHILS PERCENT AUTO 76 % (41-73); Platelet Count 244 K/mm3 (150-400); RDW Coefficient Variation 16.1 % (11.7-14.2); RDW Standard Deviation 49.1 fL (35.1-46.3); Red Blood Cell Count 3.75 M/mm3 (4.30-5.90); White Blood Cell Count 6.12 K/mm3 (4.00-11.30)
[2019-12-28 06:19] LABS: Anion Gap 8 mmol/L (6-16); Blood Urea Nitrogen 21 mg/dL (8-24); Bun/Creatinine Ratio 30.3 (12.0-20.0); CO2, Blood 21 mmol/L (21-32); Calcium, Blood 8.8 mg/dL (8.5-10.1); Chloride, Blood 107 mmol/L (98-108); Creatinine, Blood 0.69 mg/dL (0.60-1.20); Glomerular Filtration Rate >60 (60-); Glucose, Blood 111 mg/dL (70-99); Sodium, Blood 136 mmol/L (136-145)
[2019-12-28 16:07] LABS: International Normalized Ratio 1.14; Prothrombin Time Results 12.1 Sec (9.7-11.5)
--- NOTE | 2019-12-28 18:39 | NUR ---
SHIFT SUMMARY PATIENT IS PLEASANT, ALERT AND ORIENTED TO SELF AND PLACE. HE HAS HAD NO CONCERNS TODAY. HE HAS CALLED APPROPRIATELY FOR URINAL USE. HE JUST STATES HE IS AWAITING THE OPTION OF EATING. HE REPORTS THAT HE IS HUNGRY AND DOES NOT ENJOY ORAL CARE Q4.
--- NOTE | 2019-12-29 05:31 | NUR ---
SHIFT SUMMARY PT IS AN 84 Y/O MALE, ADMITTED FOR ACUTE RESPIRATORY FAILURE C HYPOXIA. HE IS A&O X 2, A 1-2PA C FWW OUT OF BED. PT IS CURRENTLY STRICTLY NPO DUE TO FAILING SWALLOW EVALS, AND REFUSED ORAL CARE DURING THE NIGHT. PT WAS PLACED BACK ON A TELE MONITOR DUE TO RECEIVING SCHEDULED IV LOPRESSOR, SHOWING CHRONIC AFIB IN THE 70S. VITAL SIGNS OTHERWISE STABLE. PT ON RA, SATTING > 91%. HE IS RECEIVING CLINIMIX @ 75 ML/HR. NO COMPLAINTS OF ACUTE PAIN, NAUSEA OR SOB. PT SLEPT OFF AND ON DURING THE NIGHT. NO ACUTE CHANGES IN PT CONDITION NOTED. WILL CONTINUE TO MONITOR AND TREAT PER EMAR UNTIL HAND OFF TO DAY SHIFT RN.
[2019-12-29 06:14] LABS: BASOPHILS ABSOLUTE AUTO 0.05 K/mm3 (0.00-0.23); BASOPHILS PERCENT AUTO 1 % (0-2); EOSINOPHILS ABSOLUTE AUTO 0.17 K/mm3 (0.00-0.68); EOSINOPHILS PERCENT AUTO 2 % (0-6); Hematocrit 34.4 % (37.0-53.0); Hemoglobin 11.2 g/dL (13.5-17.5); IMMATURE GRAN ABSOLUTE AUTO 0.05 K/mm3 (0.00-0.10); IMMATURE GRAN PERCENT AUTO 1 % (0-1); LYMPHOCYTES ABSOLUTE AUTO 0.99 K/mm3 (0.84-5.20); LYMPHOCYTES PERCENT AUTO 13 % (21-46); MONOCYTES ABSOLUTE AUTO 0.56 K/mm3 (0.16-1.47); MONOCYTES PERCENT AUTO 7 % (4-13); Mean Corpuscular HGB 27.4 pg (26.0-34.0); Mean Corpuscular HGB Conc 32.6 g/dL (31.5-36.5); Mean Corpuscular Volume 84 fL (80-100); Mean Platelet Volume 8.9 fL (9.1-12.4); NEUTROPHILS ABSOLUTE AUTO 6.04 K/mm3 (1.96-9.15); NEUTROPHILS PERCENT AUTO 77 % (41-73); Platelet Count 280 K/mm3 (150-400); RDW Coefficient Variation 15.9 % (11.7-14.2); RDW Standard Deviation 48.3 fL (35.1-46.3); Red Blood Cell Count 4.09 M/mm3 (4.30-5.90); White Blood Cell Count 7.86 K/mm3 (4.00-11.30)
[2019-12-29 06:28] LABS: Anion Gap 7 mmol/L (6-16); Blood Urea Nitrogen 17 mg/dL (8-24); Bun/Creatinine Ratio 23.4 (12.0-20.0); CO2, Blood 23 mmol/L (21-32); Calcium, Blood 8.9 mg/dL (8.5-10.1); Chloride, Blood 103 mmol/L (98-108); Creatinine, Blood 0.73 mg/dL (0.60-1.20); Glomerular Filtration Rate >60 (60-); Glucose, Blood 106 mg/dL (70-99); Magnesium, Blood 1.9 mg/dL (1.6-2.4); Phosphorus, Blood 2.9 mg/dL (2.5-4.9); Potassium, Blood 4.4 mmol/L (3.5-5.5); Sodium, Blood 133 mmol/L (136-145)
--- NOTE | 2019-12-29 09:59 | NUR ---
SPOKE WITH PHARMACY. LEVAQUIN IS NOT COMPATIBLE WITH THE CLINIMIX, NEEDS TO BE RUN THROUGH THE SEPARATE IV. ZOSYN WAS DISCONTINUED.
--- NOTE | 2019-12-29 18:36 | NUR ---
SHIFT SUMMARY TRANSFERRED TO ROOM 341, BEDSIDE REPORT RECIEVED FROM PAPO GARCÍA. X1-2A, STAND AND PIVOT, FROM W/C TO BED. ENCOURAGED TO GET OUT OF BED TO CHAIR, DEEP BREATHE, AND COUGH TO CLEAR SECRETIONS, BUT REFUSED AND UNABLE TO CLEAR SECRETIONS. REFUSED CPT WITH RT. UNABLE TO COLLECT SPUTUM, MD NOTIFIED. PATIENT EDUCATED ON INCREASED RISK OF WORSENING PNA BY REFUSING INTERVENTIONS. REFUSED ORAL CARE Q 4HOURS. PRESSURE WOUND TO COCCYX PRESENT WITH FOAM DRESSING CDI. TURNED WITH PILLOW SUPPORT Q2 HOURS AND EDUCATED PATIENT. PATIENT FREQUENTLY REPOSITIONS SELF OFF OF PILLOW. ENCOURAGED TO LAY ON SIDE. CALL LIGHT IN REACH. BED ALARM ON. BARIUM SWALLOW TOMORROW MORNING. STRICT NPO.
[2019-12-30 05:24] LABS: BASOPHILS ABSOLUTE AUTO 0.05 K/mm3 (0.00-0.23); BASOPHILS PERCENT AUTO 1 % (0-2); EOSINOPHILS ABSOLUTE AUTO 0.15 K/mm3 (0.00-0.68); EOSINOPHILS PERCENT AUTO 2 % (0-6); Hematocrit 34.4 % (37.0-53.0); Hemoglobin 11.2 g/dL (13.5-17.5); IMMATURE GRAN ABSOLUTE AUTO 0.07 K/mm3 (0.00-0.10); IMMATURE GRAN PERCENT AUTO 1 % (0-1); LYMPHOCYTES ABSOLUTE AUTO 0.92 K/mm3 (0.84-5.20); LYMPHOCYTES PERCENT AUTO 14 % (21-46); MONOCYTES ABSOLUTE AUTO 0.58 K/mm3 (0.16-1.47); MONOCYTES PERCENT AUTO 9 % (4-13); Mean Corpuscular HGB 27.1 pg (26.0-34.0); Mean Corpuscular HGB Conc 32.6 g/dL (31.5-36.5); Mean Corpuscular Volume 83 fL (80-100); Mean Platelet Volume 8.9 fL (9.1-12.4); NEUTROPHILS ABSOLUTE AUTO 4.99 K/mm3 (1.96-9.15); NEUTROPHILS PERCENT AUTO 74 % (41-73); Platelet Count 270 K/mm3 (150-400); RDW Coefficient Variation 15.7 % (11.7-14.2); RDW Standard Deviation 47.4 fL (35.1-46.3); Red Blood Cell Count 4.13 M/mm3 (4.30-5.90); White Blood Cell Count 6.76 K/mm3 (4.00-11.30)
[2019-12-30 05:38] LABS: International Normalized Ratio 1.18; Prothrombin Time Results 12.5 Sec (9.7-11.5)
[2019-12-30 05:48] LABS: Anion Gap 9 mmol/L (6-16); Blood Urea Nitrogen 17 mg/dL (8-24); Bun/Creatinine Ratio 24.9 (12.0-20.0); CO2, Blood 21 mmol/L (21-32); Chloride, Blood 102 mmol/L (98-108); Creatinine, Blood 0.68 mg/dL (0.60-1.20); Glomerular Filtration Rate >60 (60-); Glucose, Blood 96 mg/dL (70-99); Potassium, Blood 4.1 mmol/L (3.5-5.5); Sodium, Blood 132 mmol/L (136-145)
--- NOTE | 2019-12-30 07:30 | NUR ---
ASSUMED CARE: PT RESTING IN BED AT THIS TIME. AWAKE, BUT JUST WATCHING STAFF IN ROOM. AFIB ON TELE. NO ACUTE NEEDS OR CONCERNS AT THIS TIME.
--- NOTE | 2019-12-30 08:05 | NUR ---
SHIPPER RECEIVER SUMMARY Patient slept through night waking once when 2400 medication given. Complaints of mild right shoulder pain from remote injury. Pain managed to a tolerable level with kpad and ice pack alternating. Patient tolerated IV lopressor without any significant rate changes but with significant results in blood pressure. Educated patient again about the importance of good oral care expecially when npo, and import of getting a sputum for us so that we may treat his infection with best drug.
--- NOTE | 2019-12-30 12:06 | NUR ---
PT TAKEN TO IMAGING FOR SWALLOW STUDY
--- NOTE | 2019-12-30 15:03 | NUR ---
ANA SWALLOW COMPLETED AND SPEECH THERAPIST RECOMMENDS PT REMAIN NPO AND SUGGESTED PEG TUBE. PT STATES HE DOES NOT WANT THAT OPTION. INFORMED PT THAT I WOULD CALL DC PLANNING AND PALLIATIVE CARE TO DETERMINE FURTHER OPTIONS. INFORMED PT AND FAMILY THAT HOSPICE MAY BE AN OPTION THEY HEAR AND EDUCATED ON WHAT THAT MEANT BUT ALSO LET THEM KNOW THAT PALLIATIVE CARE WILL DISCUSS OPTIONS FURTHER. GEOMETRY PROFESSOR STATES SHE WILL REVIEW CHART FOR DC RESOURCES. PALLIATIVE CARE NURSE HERE NOW.
--- NOTE | 2019-12-30 15:31 | NUR ---
PALLIATIVE CARE NURSE SPOKE WITH PT AND FAMILY AND PT BECAME OVERWHELMED WITH ALL OF THE DECISIONS HE'S BEEN HAVING TO MAKE LATELY. PALLIATIVE CARE TO DISCUSS AT A LATER TIME. PT C/O SHOULDER PAIN BUT REFUSES RI TYLENOL. CALL TO DR RANDLE WHO IS AWARE THAT PT IS NOT READY TO DECIDE FOR HOSPICE YET. NEW ORDER FOR IV PAIN MEDS AT THIS TIME.
--- NOTE | 2019-12-30 18:19 | NUR ---
SHIFT SUMMARY: PT MEDICATED X1 FOR PAIN. SPEECH THERAPY RECOMMENDED PEG TUBE. PT AND FAMILY AWARE OF THIS AND EXPLORING OTHER OPTIONS DUE TO PT NOT WANTING PEG TUBE. PALLIATIVE CARE AND AIRCRAFT ELECTRICAL SYSTEMS SPECIALIST TO REVISIT TOMORROW DUE TO PT FEELING OVERWHELMED THIS AFTERNOON. 1 ASSIST WITH WALKER. NO FURTHER NEEDS OR CONCERNS AT THIS TIME.
--- NOTE | 2019-12-30 18:54 | NUR ---
Initial spiritual care note: Provided [facility] to Mr. Edmonds. His daughter and ex- were present and appear supportive/loving. POLST and AD complete and copies made for family and medical records. These were hand-carried by me to [facility]. Mr. Edmonds admits he doesn't like being sick. He is used to doing things on his own. But he expressed gratitude for the help and support of his dtr and ex-. The three of them appeared to have an easy, jovial rapport. Non-faith, but appreciative of encouragement/affirmation. I will remain available.
--- NOTE | 2019-12-31 04:57 | NUR ---
SHIFT SUMMARY ADMITTED FOR ACUTE RESPIRATORY FAILURE W/HYPOXIA. DNR CODE. PLAN IS TO DC TO A SNF TODAY OR TOMORROW. PT FAILED A BARIUM SWALLOW. CLINIMIX IS INFUSING. PT IS NPO. IV ANTIBIOTICS ARE SCHEDULED. A FUTURE PLAN OF CARE WILL BE FIGURED OUT POSSIBLY TODAY OR TOMORROW
[2019-12-31 05:42] LABS: BASOPHILS ABSOLUTE AUTO 0.06 K/mm3 (0.00-0.23); BASOPHILS PERCENT AUTO 1 % (0-2); EOSINOPHILS PERCENT AUTO 3 % (0-6); Hematocrit 35.8 % (37.0-53.0); Hemoglobin 11.5 g/dL (13.5-17.5); IMMATURE GRAN ABSOLUTE AUTO 0.09 K/mm3 (0.00-0.10); IMMATURE GRAN PERCENT AUTO 1 % (0-1); LYMPHOCYTES ABSOLUTE AUTO 1.09 K/mm3 (0.84-5.20); LYMPHOCYTES PERCENT AUTO 16 % (21-46); MONOCYTES ABSOLUTE AUTO 0.68 K/mm3 (0.16-1.47); MONOCYTES PERCENT AUTO 10 % (4-13); Mean Corpuscular HGB 26.6 pg (26.0-34.0); Mean Corpuscular HGB Conc 32.1 g/dL (31.5-36.5); Mean Corpuscular Volume 83 fL (80-100); Mean Platelet Volume 9.3 fL (9.1-12.4); NEUTROPHILS ABSOLUTE AUTO 4.85 K/mm3 (1.96-9.15); NEUTROPHILS PERCENT AUTO 70 % (41-73); Platelet Count 324 K/mm3 (150-400); RDW Coefficient Variation 15.9 % (11.7-14.2); RDW Standard Deviation 47.4 fL (35.1-46.3); Red Blood Cell Count 4.32 M/mm3 (4.30-5.90); White Blood Cell Count 6.97 K/mm3 (4.00-11.30)
[2019-12-31 05:56] LABS: International Normalized Ratio 1.17; Prothrombin Time Results 12.4 Sec (9.7-11.5)
[2019-12-31 06:00] LABS: Anion Gap 5 mmol/L (6-16); Blood Urea Nitrogen 20 mg/dL (8-24); Bun/Creatinine Ratio 23.2 (12.0-20.0); CO2, Blood 24 mmol/L (21-32); Calcium, Blood 9.5 mg/dL (8.5-10.1); Chloride, Blood 106 mmol/L (98-108); Creatinine, Blood 0.86 mg/dL (0.60-1.20); Glomerular Filtration Rate >60 (60-); Glucose, Blood 92 mg/dL (70-99); Potassium, Blood 4.2 mmol/L (3.5-5.5); Sodium, Blood 135 mmol/L (136-145)
--- NOTE | 2019-12-31 07:44 | NUR ---
pt being changed, he is awake alert, some forgetfulness, states he's doing ok and slept ok last night, lungs are clear, dim in bases, resp even and unlabored, no cough noted, hrirr, tele in place running afib per monitor, see strip, no edema noted, ppp faint, cap refill <3sec, vs stable, afebrile, iv sites are clear and patent, to rfa, and rh, infusing clinimix as ordered, btx4, abd flat soft nontender,incont of urine, skin has some pink areas, abrasion to rfa, pink coccyx, stiff and weak, miguelito, call light in reach.
--- NOTE | 2019-12-31 12:30 | NUR ---
RECEIVED REPORT FROM FRANCESCO BARROS AND ASSUMED CARE. PT COMFORTABLE IN ROOM AND VISITING WITH FAMILY. WILL CONTINUE TO MONITOR
--- NOTE | 2019-12-31 13:31 | NUR ---
Palliative care visit - Met with Nataly and ex- as they were leaving to get pt's belongings at [facility]. We discussed plans for decision making and it appears pt has deferred to his nataly for assist with arranging his care and filling in as a surrogate decision maker. When talking to him, he presents very well, alert, oriented and able to express his wants/needs but with very poor short term memory related to test results and his current health situation and challenges. If placement is not available at the [facility] ([facility]LY[facility] Weeks working with pt/fam on this) we discussed LT placement with hospice care support also. Educated nataly on ways she could stay connected to her dad if visitors not allowed at a facility via facetime or video chat. THey have an ipad with them that they can leave with pt once they have to return to [place]. Visit made to pt and assessment done. He is agreeable to visit. He reports pain "all over". He has not been medicated for pain since yesterday and only has two options. MS tylenol or IV MS 0.5mg. Spoke to nurse who will treat for pain per eMAR. Pt appears fairly calm in my visit and allowed me to open blinds so he could see trees outside. He expressed appreciation for the visit. He and family informed Sowmya from [facility] would be available tomorrow and I will be available later in the week also. FAmily also appreciative of supportive visit. Nataly is appropriately tearful, anticipating having to return home and to work and not able to spend more time with her dad, understanding he is nearing end of life. She is hopeful she can get him in a good place to receive care so she can feel more peace of mind when she leaves.
--- NOTE | 2020-01-01 04:57 | NUR ---
SHIFT SUMMARY ADMITTED FOR ACUTE RESPIRATORY FAILURE W/HYPOXIA, FOUND TO HAVE ASPIRATION PNEUMONIA. DNR CODE. BARIUM SWALLOW FAILED. PT IS NPO. HE DECLINES PEG TUBE. FAMILY AND PT WOULD BE AGREEABLE TO OK HOSPICE PLACEMENT, IF FAMILY IS ALLOWED TO VISIT THE PT. HE IS CONFUSED AT TIMES, HE CAN GET AGITATED AND FORGETFUL. CBG'S Q 6 WHILE NPO. IV ANTIBIOTICS ARE SCHEDULED. IV LOPRESSOR IS SCHEDULED. CLINIMIX IS INFUSING ORDERED. NO NEW CONCERNS THIS SHIFT.
--- NOTE | 2020-01-01 08:46 | NUR ---
Pt resting in bed upon arrival. Dr Nation in to examine Pt and discuss plan. Continued visit after Dr Nation leaves. Engaged in therapeutic discussion regarding goals of care. Confirmed with Pt of not wanting G-tube. Discussed hospice and educated on hospice philosophy with V/U made by Pt. Offered therapeutic listening as Pt discusses his wishes to avoid future hospitalizations and wants to focus on comfort. Pt reports no other concerns at this time. Palliative Care will remain available.
--- NOTE | 2020-01-01 17:39 | NUR ---
NO ACUTE CHANGES TO PT. PT TO DISCHARGE TO [facility] MONDAY (01/02/20) MORNING. PT CONTINUES TO HAVE PEG TUBE FEEDINGS AND IS TOLERATING WELL. FAMILY AT BEDSIDE TODAY . PT WORKED WITH AND PT AND OT TODAY. OUT OF BED AND IN CHAIR FOR SOME OF THE SHIFT.
--- NOTE | 2020-01-02 04:47 | NUR ---
SHIFT SUMMARY- PT. A&O, FORGETFUL. ASLEEP T/O MOST OF THE NIGHT, NO APPARENT DISTRESS NOTED. CLINIMIX INFUSING, TOLERATING WELL. PT. REPOSITIONED PRN AND FOR COMFORT. NO COMPLAINTS THIS SHIFT. PLAN FOR D/C TODAY WITH [facility]. CALL LIGHT WITHIN REACH, SIDE RAILS UPX2, AND BED ALARM ON FOR SAFETY. WILL CONT TO MONITOR.
[2020-01-02] MEDS ORDERED: MORP20L SL (09:19)
[2020-01-02] MEDS ORDERED: ENOX100I SC (09:21)
[2020-01-02] MEDS ORDERED: XARELTO15 M1 PO (09:25)
--- NOTE | 2020-01-02 10:04 | NUR ---
1006 PT WHEELED OUT BY FAMILY TO [facility] VIA TRANSPPORT. REPORT CALLED TO [facility] AT [facility], PT DISCHARGED AT 1005. IVS REMOVED WITH NO S/S OF INFECTION NOTED.
== END 2020-01-02 10:06 | DRG 871 ==
LOC: ER 03:16 → ERHOLD 04:52 → MEDS 04:52 → PCU 11:15 → MEDS 12-26 22:32
PROVIDERS: Emergency Medicine; Family Medicine; Internal Medicine; Pharmacist; ADMIT Internal Medicine
DX: A41.9 Sepsis, unspecified organism (principal); J96.01 Acute respiratory failure with hypoxia; J69.0 Pneumonitis due to inhalation of food and vomit; I48.20 Chronic atrial fibrillation, unspecified; E87.1 Hypo-osmolality and hyponatremia; Z20.828 Contact with and (suspected) exposure to other viral communicable diseases; I25.10 Atherosclerotic heart disease of native coronary artery without angina pectoris; E78.00 Pure hypercholesterolemia, unspecified; Z95.5 Presence of coronary angioplasty implant and graft; Z87.891 Personal history of nicotine dependence; Z95.2 Presence of prosthetic heart valve; H05.20 Unspecified exophthalmos
CPT/HCPCS: 0202U; 36415; 36600; 71045; 71260; 74230; 80048; 80053; 80069; 82803; 82947; 83036; 83605; 83735; 83880; 84100; 84443; 84484; 85025; 85610; 85730; 87040; 92526; 92610; 92611; 93005; 93010; 94760; 96365-59; 96375-59; 97110; 97112; 97116; 97162; 97166; 97530; 97535; 99285-25; A9270; A9270-GY; C9113; J0456; J0696; J1650; J1885; J1956; J2270; J2543; J3480; J7030; J7042; J7050; Q9967; U0002; U0003

== ENCOUNTER 2021-01-22 14:05 | Emergency (ER) | payer MEDICARE, OTHER ==
[~2021-01-22] VITALS: Ht 177.8 cm; Wt 90.7 kg
[~2021-01-22 14:05] MED LIST changes: +ENOX100I SC; +METO25ER PO; +MORP20L SL; +XARELTO15 M1 PO
[2021-01-22] MEDS ORDERED: EUTHYROX50 MCG PO (14:30)
[2021-01-22] MEDS ORDERED: FERSU300 PO (14:30)
[2021-01-22] MEDS ORDERED: TAMS.4ER PO (14:31)
[2021-01-22] MEDS ORDERED: MEMA5TAB PO (14:31)
[2021-01-22] MEDS ORDERED: WARF5 (14:33)
[2021-01-22 14:38] LABS: BASOPHILS ABSOLUTE AUTO 0.08 K/mm3 (0.00-0.23); BASOPHILS PERCENT AUTO 1 % (0-2); EOSINOPHILS ABSOLUTE AUTO 0.33 K/mm3 (0.00-0.68); EOSINOPHILS PERCENT AUTO 5 % (0-6); Hematocrit 40.5 % (37.0-53.0); Hemoglobin 13.8 g/dL (13.5-17.5); IMMATURE GRAN ABSOLUTE AUTO 0.03 K/mm3 (0.00-0.10); IMMATURE GRAN PERCENT AUTO 0 % (0-1); LYMPHOCYTES ABSOLUTE AUTO 1.58 K/mm3 (0.84-5.20); LYMPHOCYTES PERCENT AUTO 22 % (21-46); MONOCYTES ABSOLUTE AUTO 0.52 K/mm3 (0.16-1.47); MONOCYTES PERCENT AUTO 7 % (4-13); Mean Corpuscular HGB 32.5 pg (26.0-34.0); Mean Corpuscular HGB Conc 34.1 g/dL (31.5-36.5); Mean Corpuscular Volume 95 fL (80-100); Mean Platelet Volume 9.3 fL (9.1-12.4); NEUTROPHILS ABSOLUTE AUTO 4.65 K/mm3 (1.96-9.15); NEUTROPHILS PERCENT AUTO 65 % (41-73); Platelet Count 147 K/mm3 (150-400); RDW Coefficient Variation 14.1 % (11.7-14.2); RDW Standard Deviation 49.1 fL (35.1-46.3); Red Blood Cell Count 4.25 M/mm3 (4.30-5.90); White Blood Cell Count 7.19 K/mm3 (4.00-11.30)
[2021-01-22 14:55] LABS: Alanine Aminotransfer (ALT/SGP 27 U/L (12-78); Albumin/Globulin Ratio 0.7 (0.8-1.8); Alk Phos 83 U/L (50-136); Anion Gap 7 mmol/L (6-16); Aspartate Aminotrans (AST/SGOT 23 U/L (12-37); Bilirubin, Total 0.5 mg/dL (0.1-1.0); Blood Urea Nitrogen 11 mg/dL (8-24); Bun/Creatinine Ratio 10.5 (12.0-20.0); CO2, Blood 25 mmol/L (21-32); Calcium, Blood 9.2 mg/dL (8.5-10.1); Chloride, Blood 106 mmol/L (98-108); Creatinine, Blood 1.05 mg/dL (0.60-1.20); Globulin, Blood 4.3 g/dL (2.2-4.0); Glomerular Filtration Rate >60 (60-); Glucose, Blood 118 mg/dL (70-99); Potassium, Blood 4.1 mmol/L (3.5-5.5); Sodium, Blood 138 mmol/L (136-145); Total Protein, Blood 7.3 g/dL (6.4-8.2); Troponin I 0.016 ng/mL (0.000-0.040)
== END 2021-01-22 16:27 | disposition home or self-care (01) ==
LOC: ER 14:05
PROVIDERS: Emergency Medicine
DX: R07.89 Other chest pain (principal); I48.91 Unspecified atrial fibrillation; E11.9 Type 2 diabetes mellitus without complications; I25.10 Atherosclerotic heart disease of native coronary artery without angina pectoris; I10 Essential (primary) hypertension; Z88.5 Allergy status to narcotic agent; Z79.899 Other long term (current) drug therapy; Z79.01 Long term (current) use of anticoagulants; Z87.891 Personal history of nicotine dependence
CPT/HCPCS: 71045; 80053; 84484; 85025; 93005; 93010; 99285-25

== ENCOUNTER 2021-08-20 14:24 | Emergency (ER) | payer MEDICARE, OTHER ==
[~2021-08-20] VITALS: Ht 172.7 cm; Wt 74.8 kg
[~2021-08-20 14:24] MED LIST changes: +ALENDRONATE SOD35 MG PO; +ASPI81CH PO; +CEPH500 PO; +EUTHYROX50 MCG PO; +FERSU300 PO; +MEMA5TAB PO; +SENNA LAXATIVE8.6 MG PO; +SULTRIDS PO; +TAMS.4ER PO; +TIOT18; +VITAMIN D3-ALO1 EACH PO; +WARF5
[2021-08-20 15:32] LABS: BASOPHILS ABSOLUTE AUTO 0.06 K/mm3 (0.00-0.23); BASOPHILS PERCENT AUTO 1 % (0-2); EOSINOPHILS ABSOLUTE AUTO 0.14 K/mm3 (0.00-0.68); EOSINOPHILS PERCENT AUTO 2 % (0-6); Hematocrit 37.7 % (37.0-53.0); IMMATURE GRAN ABSOLUTE AUTO 0.03 K/mm3 (0.00-0.10); IMMATURE GRAN PERCENT AUTO 0 % (0-1); LYMPHOCYTES ABSOLUTE AUTO 1.14 K/mm3 (0.84-5.20); LYMPHOCYTES PERCENT AUTO 16 % (21-46); MONOCYTES ABSOLUTE AUTO 0.69 K/mm3 (0.16-1.47); MONOCYTES PERCENT AUTO 10 % (4-13); Mean Corpuscular HGB 31.9 pg (26.0-34.0); Mean Corpuscular HGB Conc 34.5 g/dL (31.5-36.5); Mean Corpuscular Volume 93 fL (80-100); Mean Platelet Volume 9.1 fL (9.1-12.4); NEUTROPHILS ABSOLUTE AUTO 4.92 K/mm3 (1.96-9.15); NEUTROPHILS PERCENT AUTO 71 % (41-73); Platelet Count 206 K/mm3 (150-400); RDW Coefficient Variation 13.8 % (11.7-14.2); RDW Standard Deviation 46.9 fL (35.1-46.3); Red Blood Cell Count 4.07 M/mm3 (4.30-5.90); White Blood Cell Count 6.98 K/mm3 (4.00-11.30)
[2021-08-20 16:07] LABS: Albumin, Blood 3.6 g/dL (3.4-5.0); Albumin/Globulin Ratio 0.8 (0.8-1.8); Bilirubin, Total 1.1 mg/dL (0.1-1.0); Bun/Creatinine Ratio 11.2 (12.0-20.0); Calcium, Blood 9.6 mg/dL (8.5-10.1); Creatinine, Blood 1.16 mg/dL (0.60-1.20); Globulin, Blood 4.6 g/dL (2.2-4.0); Potassium, Blood 4.7 mmol/L (3.5-5.5); Total Protein, Blood 8.2 g/dL (6.4-8.2)
[2021-08-20 17:35] LABS: Prothrombin Time Results 43.5 Sec (9.7-11.5)
[2021-08-20 17:58] LABS: International Normalized Ratio 4.58
== END 2021-08-20 20:37 | disposition home or self-care (01) ==
LOC: ER 14:24
PROVIDERS: Emergency Medicine; Physician Assistant
DX: R07.9 Chest pain, unspecified (principal); I25.2 Old myocardial infarction; Z79.899 Other long term (current) drug therapy; Z87.891 Personal history of nicotine dependence
CPT/HCPCS: 71046; 80053; 83690; 83880; 84484; 85025; 85610; 93005; 93010; 93971; 99285-25

== ENCOUNTER → 2022-02-11 | Outpatient (CLI) | payer MEDICARE, OTHER ==
[2022-02-14 13:53] LABS: Stool Occult Bld Immuno 1 Positive (NEGATIVE)
== END ==
LOC: LAB 12:07 → LAB SHORT 12:07
PROVIDERS: Physician Assistant
DX: Z12.11 Encounter for screening for malignant neoplasm of colon (principal)
CPT/HCPCS: G0328

== ENCOUNTER 2022-03-15 07:33 | Emergency (ER) | payer MEDICARE, OTHER ==
[~2022-03-15] VITALS: Ht 185.4 cm; Wt 77.1 kg
[2022-03-15] MEDS ORDERED: FAMO10 PO (07:42)
[2022-03-15] MEDS ORDERED: LOPE2C PO (07:43)
[2022-03-15] MEDS ORDERED: Ventolin/Prove6.7 GM INH (07:44)
[2022-03-15] MEDS ORDERED: SPIRIVA RESPIMAT4 G3 INH (07:46)
[2022-03-15] MEDS ORDERED: TAMS.4ER PO (07:46)
[2022-03-15] MEDS ORDERED: VITAMIN D31000 UNI1 PO (07:47)
[2022-03-15] MEDS ORDERED: WARF5 PO (07:47)
[2022-03-15] MEDS ORDERED: LEVO-T50 MC1 PO (07:48)
[2022-03-15] MEDS ORDERED: LASIX20 M1 PO (07:48)
[2022-03-15] MEDS ORDERED: NEMANTINE PO (07:49)
[2022-03-15] MEDS ORDERED: METO25ER PO (07:49)
[2022-03-15] MEDS ORDERED: METF500 PO (07:49)
[2022-03-15] MEDS ORDERED: ASPIR 8181 M1 PO (07:50)
[2022-03-15] MEDS ORDERED: ALENDRONATE SOD35 M1 PO (07:50)
[2022-03-15] MEDS ORDERED: DONEPEZIL HCL10 MG PO (07:51)
[2022-03-15] MEDS ORDERED: Lipitor20 MG PO (07:51)
[2022-03-15] MEDS ORDERED: FERROUS GLUCON324 MG PO (07:51)
[2022-03-15] MEDS ORDERED: Percocet 5-3251 EACH PO ×2 (10:22→14:54)
[2022-03-15] MEDS ORDERED: IBUP600 PO ×2 (10:22→14:54)
== END 2022-03-15 11:24 | disposition home or self-care (01) ==
LOC: ER 07:33
DX: M79.602 Pain in left arm (principal); E11.9 Type 2 diabetes mellitus without complications; I25.10 Atherosclerotic heart disease of native coronary artery without angina pectoris; I10 Essential (primary) hypertension; I25.2 Old myocardial infarction; Z88.5 Allergy status to narcotic agent; Z79.899 Other long term (current) drug therapy; Z79.82 Long term (current) use of aspirin; Z79.84 Long term (current) use of oral hypoglycemic drugs; Z79.01 Long term (current) use of anticoagulants; Z95.2 Presence of prosthetic heart valve; Z95.5 Presence of coronary angioplasty implant and graft; Z79.890 Hormone replacement therapy; Z87.891 Personal history of nicotine dependence
CPT/HCPCS: 73060; 73090; A9270

== ENCOUNTER → 2022-04-06 | Outpatient (CLI) | payer MEDICARE, OTHER ==
[~2022-04-06] MED LIST changes: +ALENDRONATE SOD35 M1 PO; +ASPIR 8181 M1 PO; +DONEPEZIL HCL10 MG PO; +FAMO10 PO; +FERROUS GLUCON324 MG PO; +IBUP600 PO; +LASIX20 M1 PO; +LEVO-T50 MC1 PO; +LOPE2C PO; +Lipitor20 MG PO; +NEMANTINE PO; +Percocet 5-3251 EACH PO; +SPIRIVA RESPIMAT4 G3 INH; +VITAMIN D31000 UNI1 PO; +Ventolin/Prove6.7 GM INH
[2022-04-06 18:29] LABS: Source, Urine Clean Catch
[2022-04-06 19:33] LABS: Appearance, Urine Clear (Clear); Bilirubin, Urine Neg (Neg); Blood, Urine Neg (Neg); Color, Urine Amber (P-Yellow); Glucose Qualitative, Urine Neg (Neg); Ketones, Urine Neg (Neg); Leukocyte Esterase, Urine 1+ (Neg); Nitrite, Urine Neg (Neg); Protein, Urine Neg (Neg); Specific Gravity, Urine 1.015 (1.003-1.022); Urobilinogen, Urine NORM (Normal)
[2022-04-06 19:45] LABS: Calcium Oxalate Crystals Many /hpf; Red Blood Cells, Urine 0-2 /hpf (0-2); White Blood Cells, Urine 0-2 /hpf (0-5)
[2022-04-06 19:46] LABS: Bacteria Few /hpf; Mucus Light (0-Heavy); Squamous Epithelial Cells Not Seen /hpf (Few)
== END | disposition home or self-care (01) ==
LOC: LAB 10:00 → LAB SHORT 10:00
PROVIDERS: Physician Assistant
DX: N39.0 Urinary tract infection, site not specified (principal)
CPT/HCPCS: 81001; 87086

== ENCOUNTER 2024-07-03 17:57 | Emergency (ER) | payer OTHER, MEDICARE ==
[~2024-07-03] VITALS: Ht 180.3 cm; Wt 65.8 kg
[2024-07-03] MEDS ORDERED: Diphth,Pertuss(Acell),Tet Vac 0.5 ML VIAL IM ONE (18:25)
[2024-07-03 19:30] VITALS: BP 140/92
== END 2024-07-03 19:59 | disposition other institution (70) ==
LOC: ER 17:57
DX: S01.81XA Laceration without foreign body of other part of head, initial encounter (principal); S61.412A Laceration without foreign body of left hand, initial encounter; S51.011A Laceration without foreign body of right elbow, initial encounter; W01.0XXA Fall on same level from slipping, tripping and stumbling without subsequent striking against object, initial encounter; I10 Essential (primary) hypertension; I25.2 Old myocardial infarction; I25.10 Atherosclerotic heart disease of native coronary artery without angina pectoris; I48.91 Unspecified atrial fibrillation; E11.9 Type 2 diabetes mellitus without complications; E78.00 Pure hypercholesterolemia, unspecified; Z23 Encounter for immunization; Z88.5 Allergy status to narcotic agent; Z79.890 Hormone replacement therapy; Z79.01 Long term (current) use of anticoagulants; Z79.82 Long term (current) use of aspirin; Z79.84 Long term (current) use of oral hypoglycemic drugs; Z79.899 Other long term (current) drug therapy
CPT/HCPCS: 70450; 70486; 72125; 90471; 90715; 93005; 93010; 99284-25

== ENCOUNTER 2024-09-11 12:20 | Emergency (ER) | payer MEDICARE, OTHER ==
[~2024-09-11] VITALS: Ht 177.8 cm; Wt 99.8 kg
[2024-09-11 13:01] LABS: BASOPHILS ABSOLUTE AUTO 0.07 K/mm3 (0.00-0.23); BASOPHILS PERCENT AUTO 1 % (0-2); EOSINOPHILS ABSOLUTE AUTO 0.11 K/mm3 (0.00-0.68); EOSINOPHILS PERCENT AUTO 1 % (0-6); Hematocrit 38.1 % (37.0-53.0); Hemoglobin 12.7 g/dL (13.5-17.5); IMMATURE GRAN ABSOLUTE AUTO 0.01 K/mm3 (0.00-0.10); IMMATURE GRAN PERCENT AUTO 0 % (0-1); LYMPHOCYTES ABSOLUTE AUTO 1.62 K/mm3 (0.84-5.20); LYMPHOCYTES PERCENT AUTO 21 % (21-46); MONOCYTES ABSOLUTE AUTO 0.58 K/mm3 (0.16-1.47); MONOCYTES PERCENT AUTO 8 % (4-13); Mean Corpuscular HGB 31.2 pg (26.0-34.0); Mean Corpuscular HGB Conc 33.3 g/dL (31.5-36.5); Mean Corpuscular Volume 94 fL (80-100); Mean Platelet Volume 9.4 fL (9.1-12.4); NEUTROPHILS ABSOLUTE AUTO 5.38 K/mm3 (1.96-9.15); NEUTROPHILS PERCENT AUTO 69 % (41-73); Platelet Count 169 K/mm3 (150-400); RDW Coefficient Variation 13.7 % (11.7-14.2); RDW Standard Deviation 46.6 fL (35.1-46.3); Red Blood Cell Count 4.07 M/mm3 (4.30-5.90); White Blood Cell Count 7.77 K/mm3 (4.00-11.30)
[2024-09-11 13:54] LABS: Albumin, Blood 3.1 g/dL (3.4-5.0); Albumin/Globulin Ratio 0.8 (0.8-1.8); Bilirubin, Total 0.8 mg/dL (0.1-1.0); Bun/Creatinine Ratio 20.1 (12.0-20.0); Calcium, Blood 9.4 mg/dL (8.5-10.1); Creatinine, Blood 0.85 mg/dL (0.60-1.20); Potassium, Blood 4.3 mmol/L (3.5-5.5); Total Protein, Blood 7.1 g/dL (6.4-8.2)
[2024-09-11] MEDS ORDERED: OxyCODONE 5 mg/Acetamin 325 mg TABLET PO ONE (14:05)
[2024-09-11 15:00] VITALS: BP 169/95
== END 2024-09-11 15:30 ==
LOC: ER 12:20
PROVIDERS: Emergency Medicine
DX: R07.9 Chest pain, unspecified (principal); I10 Essential (primary) hypertension; I48.91 Unspecified atrial fibrillation; E11.9 Type 2 diabetes mellitus without complications; E78.00 Pure hypercholesterolemia, unspecified; I25.2 Old myocardial infarction; Z87.891 Personal history of nicotine dependence; Z79.899 Other long term (current) drug therapy; Z79.84 Long term (current) use of oral hypoglycemic drugs; Z79.82 Long term (current) use of aspirin; Z79.01 Long term (current) use of anticoagulants; Z88.5 Allergy status to narcotic agent
CPT/HCPCS: 71046; 80053; 83690; 84484; 85025; 93005; 93010; 99285-25; A9270